=== PATIENT | female | born 1995 | race Caucasian/White ===

== ENCOUNTER 2022-01-17 20:38 | Emergency (ER) | payer MEDICAID, OTHER ==
[~2022-01-17] VITALS: Ht 165.1 cm; Wt 65.3 kg
[2022-01-17 20:38] VITALS: BP 150/87
--- NOTE | 2022-01-17 20:38 | NUR ---
PT BIBA VIA GURNEY TO BED 08. ERMD AT BEDSIDE.
[2022-01-17] MEDS ORDERED: NALOXONE PFS 2 MG/2 ML SYR ONE (20:42)
--- NOTE | 2022-01-17 20:43 | NUR ---
verbal order for narcan 2mg IVP x1 recieved by Dr. King. order carried out.
[2022-01-17] MEDS ORDERED: NALOXONE PFS 2 MG/2 ML SYR IVP ONE (20:55)
--- NOTE | 2022-01-17 22:39 | NUR ---
PT RESTING EYES CLOSED. X2 SIDE RAILS UP FOR SAFETY. PT PROVIDED FOR COMFORT
--- NOTE | 2022-01-17 23:10 | NUR ---
26 Y/O F BIBA FOR POSSIBLE OPIOD OD. FD FOUND PT UNREPONSIVE WITH SHALLWO RESPIRTAIONS. PT STATES SHE DOESNT REMEMBER HOW SHE GOT HER. LAST THING SHE REMEBERED WAS DRINKING WINE WITH BOYFRIEND AND TAKING AN M30 PILL. UPON ARRIVAL A TTHE ER JANICE Rachel ADMINISTERED 2ML NARCAN AND PT AWOKEN AND BECAME COHERENT. A&O X 2 . SKIN IS PINK/WARM/DRY; LUNGS CLEAR BL WITH 12 RR PER MIN ; HR IS TACHYCARDIC; PT DENIES ANY FEVER, CP, AT THIS TIME. PATIENT POSITIONED FOR COMFORT; HOB ELEVATED; BEDRAILS UP X2; BED DOWN. ER MD MADE AWARE OF PT STATUS. BOYFRIENRoxanne OLGUIN WAS THERE ON SCENE. PMH: ASTHMA DRUG USE : METH , 3 PILL ALLERGES: NKA
--- NOTE | 2022-01-18 | NUR ---
AYESHA OLGUIN CALLED TO GET UPDATE. PLEASE CALL HIM FOR PICKUP. PT RELEASES INFO TO HIM [phone]
--- NOTE | 2022-01-18 01:00 | NUR ---
PT SLEEPING LATERAL IN BED . OXYGEN PUT BACK ON TO 2L NASAL CANULA. PT @ 97% O2. SIDE RAILS UP FOR SAFETY
--- NOTE | 2022-01-18 02:31 | NUR ---
Patient appears to be sleeping comfortably in bed. Vital Signs within normal limits. Respirations even and unlabored. x2 side rials up for safety
--- NOTE | 2022-01-18 04:23 | NUR ---
PT SLEEPING IN SEMIFOWLERS POSITION. NASAL CANNILA O2 AT 2 L/ MIN . ALL VSS. WILL CONTINUR TO MONITOR
[2022-01-18 05:25] VITALS: BP 110/74
--- NOTE | 2022-01-18 05:25 | NUR ---
Patient discharged with v/s stable. Written and verbal after care instructions given and explained. Patient verbalized understanding. Ambulatory with steady gait. All questions addressed prior to discharge. HOMELESS RESOURCE PACKET WITH FOOD PANTRY AND SHELTERS GIVEN. BREAKFAST PROVIDED AT DISCHARGE
== END 2022-01-18 05:25 | disposition home or self-care (01) ==
LOC: MED 20:38
DX: T40.601A Poisoning by unspecified narcotics, accidental (unintentional), initial encounter (principal); F15.90 Other stimulant use, unspecified, uncomplicated; Y92.89 Other specified places as the place of occurrence of the external cause
CPT/HCPCS: 96374; 99291; J2310; 93005